=== PATIENT | male | born 1960 | race Caucasian/White ===

== ENCOUNTER 2018-06-04 05:23 | Inpatient (IN) | payer BC ==
[~2018-06-04] VITALS: Ht 160 cm; Wt 54.0 kg
[2018-06-04 06:29] LABS: Basophils # (auto) 0.1 uL; Basophils % (auto) 1.3 % (0.0-2.0); Eosinophils # (auto) 0.1 uL; Hematocrit 48.2 % (41.0-53.0); Hemoglobin 16.5 g/dL (13.5-17.5); Lymphocytes # (auto) 1.5 uL; Mean Corpuscular Hemoglobin 30.1 pg (28.0-32.0); Mean Corpuscular Hgb Conc. 34.2 g/dL (32.0-36.0); Monocytes # (auto) 0.5 uL; Monocytes % (auto) 7.8 % (0.0-12.0); Neutrophils # (auto) 4.5 uL; Neutrophils % (auto) 66.9 % (37.0-80.0); Nucleated Red Blood Cells % 0.1 %; Platelet Count (auto) 271 10^3/uL (140-450); Red Blood Cells 5.47 10^6/uL (4.5-5.90); Red Cell Distribution Width 14.1 % (11.8-14.3); White Blood Cell 6.7 10^3/uL (4.4-10.8)
[2018-06-04 06:48] LABS: Alanine Aminotransferase 28 U/L (16-61); Albumin 4.6 g/dL (3.4-5.0); Anion Gap 12 (5-15); Aspartate Aminotransferase 15 U/L (15-37); BUN/Creatinine Ratio 23.8; Blood Urea Nitrogen 25 mg/dL (7-18); Calcium 9.4 mg/dL (8.5-10.1); Carbon Dioxide 22 mmol/L (21-32); Chloride 106 mmol/L (98-107); GFR African American 94 mL/min; GFR Non-African American 78 mL/min; Glucose 88 mg/dL (74-106); Potassium 3.7 mmol/L (3.5-5.1); Sodium 140 mmol/L (136-145)
[2018-06-04 06:52] LABS: Alkaline Phosphatase 87 U/L (45-117); Bilirubin, Total 0.7 mg/dL (0.2-1.0); Total Protein 8.4 g/dL (6.4-8.2)
[2018-06-04] MEDS ORDERED: SODIUM CHLORIDE 0.9% 1,000 ML IV ONE (07:44)
[2018-06-04] MEDS ORDERED: PROMETHAZINE HCL 25 MG/ML 1ML IV PRN ×2 (07:45→12:00)
[2018-06-04] MEDS ORDERED: MORPHINE SULFATE 4 MG/ML SYR/VIAL IV ONE (07:45)
[2018-06-04 08:16] LABS: Magnesium 2.4 mg/dL (1.6-2.6)
[2018-06-04 09:27] LABS: Urine WBC None Seen /hpf (0 - 3)
[2018-06-04 09:37] LABS: Urine Amorphous Crystal FEW /hpf (None Seen); Urine Bacteria FEW /hpf (None Seen); Urine Blood Negative /uL (Negative); Urine Specific Gravity 1.024 (1.001-1.035)
[2018-06-04] MEDS ORDERED: IBUP800T24 PO (11:12)
[2018-06-04] MEDS ORDERED: LISI10TA6 PO (11:12)
[2018-06-04] MEDS ORDERED: GASTROGRAFIN 120 ML SOL ONE (11:44)
[2018-06-04] MEDS ORDERED: LABETALOL HCL 5 MG/ML ML 20ML VIAL IV ONE (11:45)
[2018-06-04] MEDS ORDERED: NITROGLYCERIN 0.4 MG SL TAB SL PRN (12:00)
[2018-06-04] MEDS ORDERED: cefTRIAXone 1GM/10ml IVPUSH 10 ML IV ONE (12:00)
[2018-06-04] MEDS ORDERED: ACETAMINOPHEN 500 MG TAB PO PRN (12:00)
[2018-06-04] MEDS ORDERED: traMADol HCL 50 MG TAB PO PRN (12:00)
[2018-06-04] MEDS ORDERED: TEMAZEPAM 15 MG CAP PO PRN (12:00)
[2018-06-04] MEDS ORDERED: LORazepam 0.5 MG TAB PO PRN (12:00)
[2018-06-04] MEDS ORDERED: MORPHINE SULF INJ 2 MG/ML SYRINGE 1ML IV PRN (12:00)
[2018-06-04] MEDS: SODIUM CHLORIDE 0.9% 1,000 ML IV SCH ×2 (13:18→21:54)
[2018-06-04] MEDS: MORPHINE SULFATE 4 MG/ML SYR/VIAL IV PRN ×3 (13:18→21:20)
[2018-06-04] MEDS: LISINOPRIL 10 MG TAB PO SCH (13:26)
[2018-06-04] MEDS: PANTOPRAZOLE 40 MG TAB PO SCH (13:26)
[2018-06-04] MEDS: metroNIDAZOLE 500MG/100ML 100 ML IV SCH ×3 (13:27→23:36)
[2018-06-04] MEDS: LABETALOL HCL 5 MG/ML ML 20ML VIAL IV PRN ×2 (14:30→17:24)
[2018-06-04 18:33] VITALS: BP 154/111
[2018-06-04 22:00] VITALS: BP 161/130
[2018-06-05] VITALS (7 sets, daily range): BP systolic 89–138; BP diastolic 63–87
[2018-06-05] MEDS: metroNIDAZOLE 500MG/100ML 100 ML IV SCH ×4 (05:55→23:37)
[2018-06-05] MEDS: SODIUM CHLORIDE 0.9% 1,000 ML IV SCH ×2 (05:55→18:22)
[2018-06-05 07:20] LABS: Cholesterol 150 mg/dL (< 200); HDL Cholesterol 64 mg/dL (40-59); LDL Cholesterol 76 mg/dL (< 100); Triglycerides 61 mg/dL (< 150)
[2018-06-05] MEDS ORDERED: LISINOPRIL 10 MG TAB PO SCH (10:00)
[2018-06-05] MEDS: LISINOPRIL 10 MG TAB PO SCH (10:00)
[2018-06-05] MEDS: PANTOPRAZOLE 40 MG TAB PO SCH (10:00)
[2018-06-05] MEDS: NITROGLYCERIN 0.2MG/HR TOPICAL PATCH TD SCH (10:00)
[2018-06-05] MEDS: cefTRIAXone 1GM/10ml IVPUSH 10 ML IV SCH (10:32)
[2018-06-05] MEDS ORDERED: FLUMAZENIL 0.1 MG/ML INJ 10ML MDV IV ONE (12:26)
[2018-06-05] MEDS ORDERED: NALOXONE HCL 0.4 MG/ML VIAL ONE (12:26)
[2018-06-05] MEDS ORDERED: SODIUM CHLORIDE LOCK 10 ML ONE (12:26)
[2018-06-05] MEDS ORDERED: diphenhdrAMINE HCL 50 MG/1 ML VL ONE (12:27)
[2018-06-05] MEDS ORDERED: LIDOCAINE VISCOUS 2% 15ML UD ONE (12:27)
[2018-06-05] MEDS ORDERED: fentaNYL CITRATE 100 MCG/2 ML VL ONE (12:27)
[2018-06-05] MEDS ORDERED: MIDAZOLAM HCL 5 MG/ML-1ML VIAL ONE (12:27)
[2018-06-06] VITALS (7 sets, daily range): BP systolic 127–152; BP diastolic 82–93
[2018-06-06] MEDS: SODIUM CHLORIDE 0.9% 1,000 ML IV SCH ×2 (04:09→20:32)
[2018-06-06] MEDS: metroNIDAZOLE 500MG/100ML 100 ML IV SCH ×4 (05:11→23:44)
[2018-06-06 06:36] LABS: Basophils # (auto) 0 uL; Basophils % (auto) 0.4 % (0.0-2.0); Eosinophils # (auto) 0.1 uL; Eosinophils % (auto) 0.8 % (0.0-7.0); Hematocrit 44.4 % (41.0-53.0); Hemoglobin 15.2 g/dL (13.5-17.5); Lymphocytes # (auto) 0.8 uL; Lymphocytes % (auto) 8.2 % (10.0-50.0); Mean Corpuscular Hemoglobin 30.7 pg (28.0-32.0); Mean Corpuscular Hgb Conc. 34.2 g/dL (32.0-36.0); Mean Corpuscular Volume 89.6 fL (80.0-100.0); Monocytes # (auto) 0.8 uL; Monocytes % (auto) 8.1 % (0.0-12.0); Neutrophils # (auto) 8.4 uL; Neutrophils % (auto) 82.5 % (37.0-80.0); Platelet Count (auto) 216 10^3/uL (140-450); Red Blood Cells 4.96 10^6/uL (4.5-5.90); Red Cell Distribution Width 14.9 % (11.8-14.3); White Blood Cell 10.2 10^3/uL (4.4-10.8)
[2018-06-06 06:45] LABS: BUN/Creatinine Ratio 36.2; Calcium 7.9 mg/dL (8.5-10.1); Magnesium 2.3 mg/dL (1.6-2.6); Potassium 4.2 mmol/L (3.5-5.1)
[2018-06-06] MEDS: cefTRIAXone 1GM/10ml IVPUSH 10 ML IV SCH (09:04)
[2018-06-06] MEDS: NITROGLYCERIN 0.2MG/HR TOPICAL PATCH TD SCH (09:05)
[2018-06-06] MEDS: PANTOPRAZOLE 40 MG TAB PO SCH (09:05)
[2018-06-06] MEDS: LISINOPRIL 10 MG TAB PO SCH (09:05)
[2018-06-06] MEDS ORDERED: LEVO500T21 PO (11:49)
[2018-06-06] MEDS ORDERED: METR500T PO (11:49)
[2018-06-07 05:00] VITALS: BP 146/85
[2018-06-07] MEDS: metroNIDAZOLE 500MG/100ML 100 ML IV SCH (05:57)
[2018-06-07 08:00] VITALS: BP 142/96
[2018-06-07 09:00] VITALS: BP 142/96
[2018-06-07] MEDS: cefTRIAXone 1GM/10ml IVPUSH 10 ML IV SCH (09:46)
[2018-06-07] MEDS: PANTOPRAZOLE 40 MG TAB PO SCH (09:46)
[2018-06-07] MEDS: LISINOPRIL 10 MG TAB PO SCH (09:47)
[2018-06-07] MEDS: NITROGLYCERIN 0.2MG/HR TOPICAL PATCH TD SCH (09:47)
[2018-06-07 13:00] VITALS: BP 151/97
== END 2018-06-07 14:00 | disposition home health service (06) | DRG 392 ==
LOC: ER 05:26 → TELE 05:27 → TELE-WESTW 17:47 → WEST WING 06-06 20:59
PROVIDERS: ADMIT Internal Medicine; ATTEND Internal Medicine
PROC: 0D9670Z Drainage of Stomach with Drainage Device, Via Natural or Artificial Opening (ICD-10-PCS; 2018-06-04)
PROC: 0DJ08ZZ Inspection of Upper Intestinal Tract, Via Natural or Artificial Opening Endoscopic (ICD-10-PCS; principal; 2018-06-05 12:40)
DX: K52.9 Noninfective gastroenteritis and colitis, unspecified (principal); K56.7 Ileus, unspecified; K29.00 Acute gastritis without bleeding; E03.9 Hypothyroidism, unspecified; I10 Essential (primary) hypertension; K44.9 Diaphragmatic hernia without obstruction or gangrene; N20.0 Calculus of kidney; N43.3 Hydrocele, unspecified; R07.9 Chest pain, unspecified; Z90.49 Acquired absence of other specified parts of digestive tract; Z72.89 Other problems related to lifestyle
CPT/HCPCS: 36415; 43235; 71045; 74018; 74176; 74250; 80048; 80053; 80061; 81001; 82550; 83690; 83735; 83880; 84443; 84484; 85025; 85379; 85652; 86141; 87086; 93005; 93306; 94761; 96361; 96374; 96375; A6257; J0696; J2250; J3490